=== PATIENT | female | born 1985 | race Two or more races ===

== ENCOUNTER 2021-11-16 09:47 | Outpatient (RCR) | payer OTHER, SELFPAY | END 2021-12-11 23:59 | LOC: EMPH 09:47 | PROVIDERS: Visit Provider Family Medicine Geriatric Medicine | DX: Z03.818 Encounter for observation for suspected exposure to other biological agents ruled out (principal) | CPT/HCPCS: 87426 ==

== ENCOUNTER 2021-12-25 11:16 | Outpatient (RCR) | payer SELFPAY | END 2022-01-08 23:59 | LOC: EMPH 11:16 | PROVIDERS: Visit Provider Family Medicine Geriatric Medicine | DX: Z03.818 Encounter for observation for suspected exposure to other biological agents ruled out (principal) | CPT/HCPCS: 87426 ==